=== PATIENT | female | born 1965 | race Caucasian/White ===

== ENCOUNTER 2018-11-13 08:09 | Day surgery (SDC) | payer MEDICAID ==
[~2018-11-13] VITALS: Ht 154.9 cm; Wt 84.5 kg
[2018-11-13] MEDS ORDERED: METOPROLOL TARTRATE 50 MG TABLET PO PRN (08:35)
[2018-11-13] MEDS ORDERED: 0.9% SODIUM CHLORIDE 10 ML SYRINGE IVP PRN (08:35)
[2018-11-13] MEDS ORDERED: ALLO100T PO (08:43)
[2018-11-13] MEDS ORDERED: LOSA1TAB40 PO (08:43)
[2018-11-13] MEDS ORDERED: NITR0.4T52 SL (08:43)
[2018-11-13] MEDS ORDERED: PARO10TA89 PO (08:43)
[2018-11-13] MEDS ORDERED: ASPI-1182 PO (08:43)
[2018-11-13 09:21] LABS: CALCIUM, TOTAL 8.3 mg/dL (8.8-10.5); CREATININE 1.87 mg/dL (0.60-1.30); POTASSIUM 3.9 mmol/L (3.5-5.1)
== END 2018-11-13 10:00 | disposition home or self-care (01) ==
LOC: SURGERY 08:09 → EDSTATUS 09:00 → SURGERY 10:00
PROVIDERS: ATTEND Nutritionist Nutrition, Education
DX: R06.00 Dyspnea, unspecified (principal); Z53.8 Procedure and treatment not carried out for other reasons; F32.9 Major depressive disorder, single episode, unspecified; K29.70 Gastritis, unspecified, without bleeding; D63.8 Anemia in other chronic diseases classified elsewhere; I12.9 Hypertensive chronic kidney disease with stage 1 through stage 4 chronic kidney disease, or unspecified chronic kidney disease; N18.9 Chronic kidney disease, unspecified; Z79.82 Long term (current) use of aspirin; Z79.899 Other long term (current) drug therapy
CPT/HCPCS: 93005